=== PATIENT | female | born 1980 | race Caucasian/White ===

== ENCOUNTER 2025-06-27 20:45 | Emergency (ER) | payer OTHER, SELFPAY ==
[2025-06-27 20:48] VITALS: BP 168/94
[2025-06-27 21:09] LABS: Hematocrit 36.9 % (37.0-47.0); Hemoglobin 10.8 g/dL (12.0-16.0); Mean Corp Hgb Conc. 29.3 g/dL (33.0-37.0); Mean Corpuscular Volume 77.5 fL (81.0-99.0); Nucleated Red Blood Cells % 0 %; Platelet Count 210 10^3/uL (130-400); Red Cell Dist. Width 18.3 % (11.5-14.5)
[2025-06-27 21:19] LABS: ALT (SGPT) 19 U/L (0-35); AST (SGOT) 19 U/L (14-36); Albumin 3.9 g/dl (3.5-5.0); Alkaline Phosphatase 94 U/L (38-126); Blood Urea Nitrogen 10 mg/dl (7-17); Calcium 8.8 mg/dl (8.4-10.2); Carbon Dioxide 28 mmol/L (22-30); Chloride 102 mmol/L (98-107); Glucose 226 mg/dl (70-99); Potassium 4.1 mmol/L (3.5-5.1); Sodium 135 mmol/L (135-145); Total Protein 7.2 g/dl (6.3-8.2); eGFR > 60.00
[2025-06-27 23:30] VITALS: BMI 54.6
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
[2025-06-28] MEDS: TETRACAINE 0.5% OPHTHALMIC SOLUTION 1 DROP OPHTH (00:59)
[2025-06-28 01:46] VITALS: BP 147/62
== END 2025-06-28 01:30 | disposition home or self-care (01) ==
LOC: EMR 20:45
PROVIDERS: Emergency Medicine; EMERGENCY PHYSICIAN Emergency Medicine; FAMILY PHYSICIAN Family Medicine
DX: S05.02XA Injury of conjunctiva and corneal abrasion without foreign body, left eye, initial encounter (principal); H10.32 Unspecified acute conjunctivitis, left eye; X58.XXXA Exposure to other specified factors, initial encounter; F17.200 Nicotine dependence, unspecified, uncomplicated; Z86.16 Personal history of COVID-19; Z88.0 Allergy status to penicillin; Z90.49 Acquired absence of other specified parts of digestive tract
CPT/HCPCS: 99283; 80053; 85025

== ENCOUNTER 2025-09-15 21:44 | Emergency (ER) | payer OTHER, SELFPAY ==
[2025-09-15 21:55] VITALS: BP 184/90
[2025-09-15 23:29] VITALS: BMI 54.3
[2025-09-15 23:35] VITALS: BP 142/47
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
[2025-09-16 01:31] VITALS: BP 142/78
== END 2025-09-16 01:33 | disposition home or self-care (01) ==
LOC: EMR 21:44
PROVIDERS: EMERGENCY PHYSICIAN Student in an Organized Health Care Education/Training Program; FAMILY PHYSICIAN Family Medicine
DX: N63.20 Unspecified lump in the left breast, unspecified quadrant (principal); F17.200 Nicotine dependence, unspecified, uncomplicated; Z90.49 Acquired absence of other specified parts of digestive tract
CPT/HCPCS: 99282

== ENCOUNTER 2025-09-24 02:36 | Inpatient (IN) | payer OTHER, SELFPAY ==
[2025-09-23 22:50] VITALS: BP 204/123
[2025-09-23 23:17] LABS: Hematocrit 36.4 % (37.0-47.0); Hemoglobin 10.8 g/dL (12.0-16.0); Mean Corp Hgb Conc. 29.7 g/dL (33.0-37.0); Mean Corpuscular Volume 80.2 fL (81.0-99.0); Nucleated Red Blood Cells % 0 %; Platelet Count 220 10^3/uL (130-400); Red Cell Dist. Width 16.7 % (11.5-14.5)
[2025-09-23 23:32] LABS: ALT (SGPT) 29 U/L (0-35); AST (SGOT) 22 U/L (14-36); Albumin 3.9 g/dl (3.5-5.0); Alkaline Phosphatase 108 U/L (38-126); Blood Urea Nitrogen 11 mg/dl (7-17); Calcium 8.9 mg/dl (8.4-10.2); Carbon Dioxide 31 mmol/L (22-30); Chloride 99 mmol/L (98-107); Glucose 267 mg/dl (70-99); Potassium 4.0 mmol/L (3.5-5.1); Sodium 136 mmol/L (135-145); Total Protein 7.3 g/dl (6.3-8.2); eGFR > 60.00
[2025-09-24] VITALS (11 sets, daily range): BP systolic 73–157; BP diastolic 41–84; BMI 54.0; BMI 53.4
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
[2025-09-24] MEDS: TORADOL 15 MG IV (01:08)
[2025-09-24] MEDS: NSS 1000 IV (01:08)
[2025-09-24] MEDS: VANCOCIN 540 MG IV (02:11)
--- NOTE | 2025-09-24 02:22 | HPS.HSE ---
Family Physician
-
Family Physician: Ady Manning
Chief Complaint
-
L Breast Pain / Swelling / Redness
History of Present Illness
Patient is a 44y F with PMH significant for morbid obesity who presents to ED complaining of L breast pain, swelling and redness for the past 2 weeks. Patient denies any preceding injury, trauma, etc. She was seen here in the ED On 09/16 and
POCUS at that time showed a small fluid collection. Patient was already on a course of doxycycline (for sinus symptoms) at that time and this was continued. Patient followed up with Breast Surgery as an outpatient and clindamycin and cephalexin
were added to her regimen. Unfortunately her symptoms have persisted / progressed. She notes increased area of involvement with increased pain. She notes subjective fevers / chills.
Patient returned to the ED this evening for further evaluation.
Patient is noted to be hyperglycemic this evening. She states that she has had similar findings in the past associated with ED visits, etc - though she does not have a formal diagnosis of DM.
Medical History
Past Medical History
Past Medical History: Reports Other
Additional Past Medical History:
Morbid Obesity
Past Surgical History: Reports Other
Additional Past Surgical History:
T&A
Left Hand Surgery
Cholecystectomy
Social History
Tobacco: Non-smoker
Alcohol: None
Drug: Other (History of methamphetamine / cocaine use.)
Family History
Family History: Not pertinent
Allergies / Home Medications
Allergies reflects when Allergies were last updated in [facility].
Home Medications with original date entered in [facility]
Allergy/Medication List:
Allergies
Allergy/AdvReac Type Severity Reaction Status Date / Time
Penicillins Allergy Mild Hives Verified 09/23/25 22:49
oxycodone HCl (From Percocet) Allergy Rash Verified 09/23/25 22:49
shellfish derived Allergy Hives Verified 09/23/25 22:49
sulfamethoxazole (From Allergy Hives Verified 09/23/25 22:49
Bactrim)
trimethoprim (From Bactrim) Allergy Hives Verified 09/23/25 22:49
sensodyne Allergy Tongue Uncoded 09/23/25 22:49
Swelling
Home Medications
Keflex 1 tab PO BID 06/30/21
clindamycin HCl 300 mg capsule (Cleocin HCl) 300 mg PO TID 7 days #21 caps 06/28/25
Review of Systems
-
History Source: Patient
A 12 point ROS was completed and negative except as noted: Yes
Constitutional: Reports Fever, Fatigue and Chills
EENT: Denies Sore Throat
Respiratory: Denies Cough or Trouble Breathing
Cardiac: Denies Chest Pain or Palpitations
Abdomen/GI: Denies Abdominal Pain, Nausea, Vomiting or Diarrhea
: Denies Dysuria or Frequency
Skin: Reports Other (L breast pain, swelling, redness x 2 weeks.)
Neurological: Denies Dizzy or Headache
Psych: Denies Depression or Anxiety
Physical Exam
Vital Signs
Vital Signs
Temp Pulse Resp BP Pulse Ox
98.0 F 83 20 122/60 99
09/24/25 01:18 09/24/25 01:31 09/24/25 01:31 09/24/25 01:31 09/24/25 01:31
Physical Exam
General: Other (Morbidly obese 44y F in mild distress due to L breast pain.)
HEENT: Other (Absent dentition / dental implant posts in place. Thick neck.)
Respiratory: Clear; No Wheezes, Rales or Rhonchi
Cardiac: S1/S2 and Regular Rhythm; No Murmur
Breast: Other (L breast with erythema, increased warmth and induration. Area of focal fluctuance / tenderness superior to the areola. Clear drainage from areola.)
GI: Non Tender, Non Distended and Normal Bowel Sounds
Musculoskeletal: No Clubbing and No Cyanosis
Neuro: AO x 3
Laboratory Results
-
09/23/25 23:12
09/23/25 23:12
Laboratory Results
Lactic Acid Cancelled 09/24/25 05:00
Total Bilirubin 0.5 mg/dl (0.2-1.3) 09/23/25 23:12
AST 22 U/L (14-36) 09/23/25 23:12
ALT 29 U/L (0-35) 09/23/25 23:12
Alkaline Phosphatase 108 U/L (38-126) 09/23/25 23:12
Impression/Plan
-
A/P: Patient is a 44y F with PMH significant for morbid obesity who presents to ED complaining of 2 weeks of L breast pain, swelling and redness despite multiple OP abx.
Left Breast Abscess / Cellulitis
- Admit for further evaluation and treatment.
- Failed OP treatment with doxycycline, clindamycin and cephalexin.
- US done at bedside on 09/16 showed small collection.
- Formal US in the ED this evening shows 5 x 5 cm collection.
- Continue IV vancomycin for now.
- IR consulted for aspiration / culture in AM.
- Breast Surgery consulted for additional recommendations / further intervention if necessary.
- Follow-up culture data and adjust abx coverage as appropriate.
- Supportive care including pain control, etc.
Hyperglycemia
- Suspect undiagnosed DM-II given risk factors, prior hyperglycemia, etc.
- Follow glucose and cover with SSI as needed.
- Check A1C.
- Will likely benefit from initiation of DM-II regimen prior to discharge.
Morbid Obesity due to excess calories
- Affects all aspects of care.
- Encourage healthy diet and increased exercise with goal of weight loss.
DVT Prophylaxis: Lovenox
Code Status: Full
[2025-09-24] MEDS: LR 1000 IV ×2 (04:15→13:53)
--- NOTE | 2025-09-24 04:30 | PTCARENOTE ---
Pt is a 44y F with PMH Smoker, morbid obesity who presents to ED with a dx of Left breast abcess at 04:15. Pt AOx3, bed in a low position, call light in reach.
[2025-09-24 05:58] LABS: Hematocrit 34.1 % (37.0-47.0); Hemoglobin 9.9 g/dL (12.0-16.0); Mean Corp Hgb Conc. 29.0 g/dL (33.0-37.0); Mean Corpuscular Volume 81.2 fL (81.0-99.0); Platelet Count 215 10^3/uL (130-400); Red Cell Dist. Width 16.7 % (11.5-14.5)
[2025-09-24 06:17] LABS: Blood Urea Nitrogen 11 mg/dl (7-17); Calcium 8.5 mg/dl (8.4-10.2); Carbon Dioxide 29 mmol/L (22-30); Chloride 101 mmol/L (98-107); Estimated Creatinine Clearance > 125 ml/min; Glucose 209 mg/dl (70-99); Potassium 4.2 mmol/L (3.5-5.1); Sodium 135 mmol/L (135-145); eGFR > 60.00
[2025-09-24] MEDS: NOVOLOG FLEXPEN-LOW RESISTANCE SC (06:30)
--- NOTE | 2025-09-24 06:35 | PHA.VAN.IN ---
Assessment
- Assessment
Renal Function: Appears similar to baseline
AUC Dosing Plan
- Dosing Variables
Dosing Weight (kg): 141
Dosing CrCl (ml/min): 125
Vd coefficient (L/kg): 0.5
- Empiric Dosing
Initial / Loading Dose: 2000mg - 09/24 02:11
Maintenance Regimen: Vanc 1000mg Q8H starting at 1400
Estimated AUC (mcg*h/mL): 415
Estimated Peak (mcg*h/mL): 24.5
Estimated Trough (mcg/ml): 11.5
Estimated Half Life (H): 6.4
- Monitoring
No levels ordered at this time: consider levels in next few days - patient may be slow to accumulate
Pharmacokinetics Vancomycin I
- -
Patient Age: 44
Patient Sex: Female
Vancomycin Day #: 1
Indication: Skin And Soft Tissue
Requesting Provider: Dr. Shannon
Pertinent Antimicrobial Allergies:
penicillins - hives
Height / Weight:
Height 5 ft 4 in
Actual Weight 140.931 kg
Pertinent Past Medical History: BMI ~53
- Vital Signs / Lab Results
Temp Pulse Resp BP Pulse Ox
98.7 F 89 20 132/84 98
09/24/25 04:17 09/24/25 04:17 09/24/25 04:17 09/24/25 04:17 09/24/25 05:00
Lab Results - Hematology
09/23/25 09/24/25
23:12 05:37
WBC 13.1 H 12.1 H
Lab Results - Chemistry
09/23/25 09/24/25
23:12 05:37
BUN 11 11
Creatinine 0.6 0.6
Estimated Creat Clear > 125
Albumin 3.9
09/24/25 09/24/25
01:10 05:00
Lactic Acid 1.1 Cancelled
[2025-09-24] MEDS: DILAUDID 0.5 MG IV ×3 (06:45→16:17)
[2025-09-24 09:14] LABS: Glycohemoglobin (HgbA1c) 10.2 % (4.0-5.9)
--- NOTE | 2025-09-24 11:03 | CON.GS ---
Consultation
-
Date/Time Consultation Requested: 09/24/25 0100H
Date/Time Consultation Performed: 09/24/25 1104H
Requesting Provider: Jesse
Performing Provider: Rina
Reason for Consultation: Breast abscess
Medical History
-
Chief Complaint: Breast pain and swelling
History of Present Illness:
The patient is a44 Y/O female known to me from Clinic where she presented after being seen in the ED 4 days prior for left breast pain, swelling and pain. No fluctuance or identifiable collection at that time. Antibiotics broadened and patient
informed that she could be forming a collection. Her mother called yesterday and we instructed her to present to the ED for management.
Past Medical History
Past Medical History: Reviewed & Noncontributory
Past Surgical History: Cholecystectomy and Tonsilectomy
Social History
Tobacco: Non-Smoker
Alcohol: None
Drug: None
Family History
Family History: Reviewed & Not Pertinent
Allergies / Home Medications
Allergy/AdvReac Type Severity Reaction Status Date / Time
Penicillins Allergy Mild Hives Verified 09/23/25 22:49
oxycodone HCl (From Percocet) Allergy Rash Verified 09/23/25 22:49
shellfish derived Allergy Hives Verified 09/23/25 22:49
sulfamethoxazole (From Allergy Hives Verified 09/23/25 22:49
Bactrim)
trimethoprim (From Bactrim) Allergy Hives Verified 09/23/25 22:49
sensodyne Allergy Tongue Uncoded 09/23/25 22:49
Swelling
�Medication �Instructions �Recorded �Confirmed �Type
Keflex 1 tab PO BID 06/30/21 09/24/25 History
clindamycin HCl 300 mg capsule 300 mg PO TID 7 days #21 caps 06/28/25 09/24/25 Rx
(Cleocin HCl)
Review of Systems
-
History Source: Patient
All other systems: Negative unless noted
Constitutional: Fever
Skin: Other (breast skin with edema and erythema)
A 10 point review of systems was completed, and was negative except as per HPI.
Physical Exam
Vital Signs
Temp Pulse Resp BP Pulse Ox
98.6 F 89 16 149/63 91
09/24/25 08:10 09/24/25 08:10 09/24/25 08:10 09/24/25 08:10 09/24/25 08:10
09/23/25 09/24/25 09/25/25
06:59 06:59 06:59
Actual Weight 140.931 kg
Body Mass Index (BMI) 53.4
Lab Results
09/24/25 05:37
09/24/25 05:37
WBC 12.1 10^3/uL (4.8-10.8) H 09/24/25 05:37
Hgb 9.9 g/dL (12.0-16.0) L 09/24/25 05:37
Hct 34.1 % (37.0-47.0) L 09/24/25 05:37
Plt Count 215 10^3/uL (130-400) 09/24/25 05:37
Abs Immat Gran (auto) 0.1 10^3/uL (0-0.05) H 09/23/25 23:12
Neutrophils % 70.1 % (42.2-75.2) 09/23/25 23:12
Physical Exam
General: Well Developed and Other (obese)
HEENT: Anicteric
Respiratory: Clear and Non Labored Respirations
Breast: Other (erythema left breast with decreased edema compared to 3 days ago)
GI: Non Tender
Musculoskeletal: No Clubbing and Other (missing digits left hand)
Neuro: Awake and Alert
Psych: Calm
Data Reviewed
-
Radiology: Image Personally Visualized and interpreted, Report Reviewed by me and Discussed with Physician
Ultrasound: Image Personally Visualized and interpreted, Report Reviewed by me and Discussed with Physician
Labs: Labs Reviewed by me
Assessment / Plan
-
44 Y/O female with abscess of the left breast. She will undergo IR drainage and drain placement. Await culture results. Pt will need glycemic management or healing may be significantly delayed. Additionally, she is anemic and this can be worked up
as an outpatient. Await culture results and I will follow her as an outpatient after discharge for drain management. Once cleared, breast imaging (mammogram) will be ordered.
--- NOTE | 2025-09-24 12:59 | W.PN.UPDATE ---
Update Note
Progress Note Update
- US guided L breast abscess. 6F drain placed.
- 10 mL purulent fluid aspirated, sent for gs/cx
- Pt tolerated well.
[2025-09-24] MEDS: VANCOCIN 200 IV ×2 (13:54→22:20)
[2025-09-24] MEDS: NOVOLOG FLEXPEN-LOW RESISTANCE 1 UNITS SC (14:13)
[2025-09-24 14:19] LABS: Glucose - Point of Care 161 mg/dl (70-99)
--- NOTE | 2025-09-24 16:11 | CM ---
CM met with pt bedside
Pt resides in a 2nd floor apartment with a roommate, no elevator, 3STE, full flight to second floor
Her brother/Marcial and CHANDA/Christian reside in the apartment below her
Pt is independent with her ADLs, denies use of DMEs
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
PCP- Ady Manning
Rx- [facility] [address]
Discharge Disposition- anticipate home no needs
[2025-09-24] MEDS: LOVENOX 40 MG SC (16:17)
[2025-09-24 16:38] LABS: Glucose - Point of Care 257 mg/dl (70-99)
[2025-09-24] MEDS: NOVOLOG FLEXPEN-LOW RESISTANCE 3 UNITS SC (17:14)
[2025-09-24] MEDS: TORADOL 10 MG IV (20:27)
[2025-09-24 21:51] LABS: Glucose - Point of Care 293 mg/dl (70-99)
[2025-09-25] MEDS: LR IV ×2 (01:00→12:01)
[2025-09-25] MEDS: DILAUDID 0.5 MG IV ×4 (04:05→17:37)
[2025-09-25] MEDS: VANCOCIN 200 IV ×3 (05:47→21:16)
--- NOTE | 2025-09-25 06:25 | RESPNOTE ---
Nocturnal Oximetry done overnight with no issues. Report is printed and scanned.
--- NOTE | 2025-09-25 07:38 | PHA.VAN.FU ---
Vancomycin Assessment / Plan
- Assessment
Renal Function: No New Labs Today
In the past 24 hrs, patient has been: Afebrile
Wound cx with S. aureus - PBP2a negative per microlab
- Dosing Plan
Continue: Vanc 1000mg Q8H
- Monitoring Plan
No level(s) ordered at this time: consider in next few days
Monitoring Comments: patient may be slow to accumulate given weight > 100kg
- Follow Up
Pharmacy will continue to follow.
Vancomycin Follow UP
- -
Patient Age: 44
Patient Sex: Female
Vancomycin Day #: 2
Indication: Skin And Soft Tissue
Requesting Provider: Dr. Shannon
Pertinent Antimicrobial Allergies:
penicillins - hives
Height / Weight:
Height 5 ft 4 in
Actual Weight 140.931 kg
Pertinent Past Medical History: BMI ~53
- Vital Signs / Lab Results
Temp Pulse Resp BP Pulse Ox
98.7 F 89 17 147/70 91
09/24/25 23:06 09/24/25 23:06 09/24/25 23:06 09/24/25 23:06 09/24/25 23:06
Lab Results - Hematology
09/23/25 09/24/25
23:12 05:37
WBC 13.1 H 12.1 H
Lab Results - Chemistry
09/23/25 09/24/25
23:12 05:37
BUN 11 11
Creatinine 0.6 0.6
Estimated Creat Clear > 125
Albumin 3.9
09/24/25 09/24/25
01:10 05:00
Lactic Acid 1.1 Cancelled
Microbiology Results
09/24/25 01:10 Blood Culture - Preliminary
Blood/Venous No Growth in 24 hours- Final report to follow
09/24/25 01:10 Blood Culture - Preliminary
Blood/Venous No Growth in 24 hours- Final report to follow
[2025-09-25 07:48] LABS: Glucose - Point of Care 271 mg/dl (70-99)
[2025-09-25 07:54] VITALS: BP 148/69
[2025-09-25] MEDS: NOVOLOG FLEXPEN-LOW RESISTANCE 3 UNITS SC ×2 (08:28→12:30)
[2025-09-25] MEDS: FLUSH (NSS) 2 FLUSH IV ×3 (08:35→17:39)
--- NOTE | 2025-09-25 10:01 | W.PN.HOSP.TC ---
Today's Communication/Plan
-
Continue with IV vancomycin
Start on Lantus and nutritional insulin
Nocturnal oxygen support
Assessment / Plan
Assessment / Plan
A/P: Patient is a 44y F with PMH significant for morbid obesity who presents to ED complaining of 2 weeks of L breast pain, swelling and redness despite multiple OP abx.
Left Breast Abscess / Cellulitis
- Failed OP treatment with doxycycline, clindamycin and cephalexin.
- Ultrasound imaging shows a collection concerning for abscess
- Status post IR ultrasound-guided abscess drainage. Drainage catheter in the cavity. Await surgical input
- Continue IV vancomycin for now. Staphylococcus aureus in cultures so far-sensitivities pending
- Supportive care including pain control, etc.
New onset of diabetes mellitus
Hemoglobin A1c 10.2.
Discussed about role of insulin once the hemoglobin A1c is more than 9. Agreeable for insulin. Once adequate control she can transition to oral hypoglycemic agents, GLP-1 agonist.
Start on Lantus at night and nutritional insulin. Consult diabetic nurse educator
Nocturnal hypoxemia. Patient has clinical features of obstructive sleep apnea.
Nocturnal pulse oximetry report reviewed.
Will provide home oxygen during sleep. Patient advised to get a formal sleep study.
Morbid Obesity due to excess calories
- Affects all aspects of care.
- Encourage healthy diet and increased exercise with goal of weight loss.
DVT Prophylaxis: Lovenox
Code Status: Full
Total time spent on today's encounter was 52 minutes which included time spent in counseling the patient/family regarding diagnosis and treatment plan as listed above, goals of care, and symptom management. Case was discussed with nursing staff,
specialists, and care coordinators/case management. All labs and imaging personally reviewed by me. Remainder the time spent in detailed review of previous records, lab data, imaging, and other medical provider documentation.
Anticipated Discharge: 24 - 48 hours
Subjective/Interval History
-
Date of Service: September 25, 2025
Pain from the left breast abscess area better. Denies any fever or chills.
Was not aware that she is diabetic.
She has snoring issues, inadequate sleep feeling, naps in the day.
Objective Data
-
Vital Signs:
Vital Signs
Temp Pulse Resp BP Pulse Ox
98.4 F 76 20 148/69 93
09/25/25 07:54 09/25/25 07:54 09/25/25 07:54 09/25/25 07:54 09/25/25 07:54
I&O
09/24/25 09/25/25 09/26/25
06:59 06:59 06:59
Intake Total 1490 / 1490
Output Total
Balance 1465 / 1465
Physical Exam
-
General: Comfortable
Respiratory: Clear to Auscultation and Non Labored Respirations; Negative Accessory Resp Muscle Use
Cardiac: Regular Rhythm and S1/S2; Negative Tachycardic
GI: Soft and Other (Obese)
Neuro: AO x 3
Data Reviewed
-
Labs: Labs Reviewed by me
[2025-09-25 11:35] LABS: Glucose - Point of Care 532 mg/dl (70-99)
[2025-09-25 12:12] LABS: Glucose 289 mg/dl (70-99)
[2025-09-25] MEDS: NOVOLOG FLEXPEN 5 UNITS SC ×2 (12:30→17:26)
--- NOTE | 2025-09-25 14:30 | W.PN.UPDATE ---
Update Note
Progress Note Update
Spoke with Microbiology, Staph aureus from the breast infection was put up for sensitivies and will be resulted tomorrow. Have patient see me as outpatient for drain removal.
[2025-09-25 15:08] VITALS: BP 147/76
[2025-09-25 16:18] LABS: Glucose - Point of Care 227 mg/dl (70-99)
[2025-09-25] MEDS: NOVOLOG FLEXPEN-LOW RESISTANCE 2 UNITS SC (17:26)
[2025-09-25] MEDS: LOVENOX 40 MG SC (17:27)
[2025-09-25] MEDS: TORADOL 10 MG IV (21:15)
[2025-09-25 21:45] LABS: Glucose - Point of Care 291 mg/dl (70-99)
[2025-09-25] MEDS: LANTUS 0.15 UNITS SC (22:18)
[2025-09-25 23:06] VITALS: BP 144/66
[2025-09-26] MEDS: DILAUDID 0.5 MG IV ×2 (01:23→10:18)
[2025-09-26] MEDS: VANCOCIN 200 IV (05:44)
[2025-09-26 07:00] VITALS: BP 160/92
[2025-09-26] MEDS: TORADOL 10 MG IV (07:39)
[2025-09-26 07:46] LABS: Glucose - Point of Care 210 mg/dl (70-99)
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
[2025-09-26] MEDS: NOVOLOG FLEXPEN-LOW RESISTANCE 2 UNITS SC ×2 (08:19→12:28)
[2025-09-26] MEDS: NOVOLOG FLEXPEN 5 UNITS SC (08:20)
[2025-09-26] MEDS: GLUCOPHAGE 500 MG PO ×2 (09:02→17:42)
[2025-09-26] MEDS: NOVOLOG FLEXPEN 3 UNITS SC (09:03)
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
--- NOTE | 2025-09-26 09:40 | CM ---
Patient seen at bedside 2 south. Patient stated that she lives with roommate. Patient plan is home with VN and she would like [facility] when discharged. Patient pending ID consult. CM will continue to follow for discharge planning needs.
Plan; home with VN; pending [facility] and watch for IV antibiotic needs.
[2025-09-26 10:04] LABS: Hematocrit 37.4 % (37.0-47.0); Hemoglobin 10.7 g/dL (12.0-16.0); Mean Corp Hgb Conc. 28.6 g/dL (33.0-37.0); Mean Corpuscular Volume 84.6 fL (81.0-99.0); Nucleated Red Blood Cells % 0 %; Platelet Count 202 10^3/uL (130-400); Red Cell Dist. Width 16.5 % (11.5-14.5)
[2025-09-26] MEDS: ANCEF 10 IV ×2 (10:07→17:44)
[2025-09-26 11:32] LABS: Glucose - Point of Care 202 mg/dl (70-99)
--- NOTE | 2025-09-26 11:35 | W.PN.HOSP.TC ---
Today's Communication/Plan
-
Monitor vital signs see plan
Follow cultures
Continue with Ancef
Continue with drain per surgery
Continue with insulin
Pain control
Assessment / Plan
Assessment / Plan
A/P: Patient is a 44y F with PMH significant for morbid obesity who presents to ED complaining of 2 weeks of L breast pain, swelling and redness despite multiple OP abx.
General: Comfortable
Respiratory: Clear to Auscultation and Non Labored Respirations; Negative Accessory Resp Muscle Use
Cardiac: Regular Rhythm and S1/S2; Negative Tachycardic
GI: Soft and Other (Obese)
Neuro: AO x 3
Left Breast Abscess / Cellulitis
- Failed OP treatment with doxycycline, clindamycin and cephalexin.
- Ultrasound imaging shows a collection concerning for abscess
- Status post IR ultrasound-guided abscess drainage. Drainage catheter in the cavity. Dr. Flynn following. Patient will follow-up with her outpatient
- Cultures so far with Staph aureus, ID now consulted. Switched antibiotic to Ancef
- Supportive care including pain control, etc.
Does have significant pain, currently on IV Dilaudid. Start as needed Vicodin which patient tolerated in the past
New onset of diabetes mellitus
Hemoglobin A1c 10.2.
Discussed about role of insulin once the hemoglobin A1c is more than 9. Agreeable for insulin. Once adequate control she can transition to oral hypoglycemic agents, GLP-1 agonist.
Start on Lantus at night and nutritional insulin. Consult diabetic nurse educator
Insulin teaching
Nocturnal hypoxemia. Patient has clinical features of obstructive sleep apnea.
Nocturnal pulse oximetry report reviewed.
Will provide home oxygen during sleep. Patient advised to get a formal sleep study.
Morbid Obesity due to excess calories
- Affects all aspects of care.
- Encourage healthy diet and increased exercise with goal of weight loss.
DVT Prophylaxis: Lovenox
Code Status: Full
Total time spent on today's encounter was 51 minutes which included time spent in counseling the patient/family regarding diagnosis and treatment plan as listed above, goals of care, and symptom management. Case was discussed with nursing staff,
specialists, and care coordinators/case management. All labs and imaging personally reviewed by me. Remainder the time spent in detailed review of previous records, lab data, imaging, and other medical provider documentation.
Anticipated Discharge: > 48 hours
Subjective/Interval History
-
Date of Service: September 26, 2025
Does have some pain
Objective Data
-
Labs:
Laboratory Results
09/26/25 09/26/25
09:04 10:30
WBC 9.7
Hgb 10.7 L
Hct 37.4
Plt Count 202
Sodium Cancelled Pending
Potassium Cancelled Pending
Chloride Cancelled Pending
Carbon Dioxide Cancelled Pending
BUN Cancelled Pending
Creatinine Cancelled Pending
Glucose Cancelled Pending
Calcium Cancelled Pending
Vital Signs:
Vital Signs
Temp Pulse Resp BP Pulse Ox
98.5 F 81 18 160/92 95
09/26/25 07:00 09/26/25 07:00 09/26/25 07:00 09/26/25 07:00 09/26/25 07:00
I&O
09/25/25 09/26/25 09/27/25
06:59 06:59 06:59
Intake Total 1490 / 1490 1925 / 1925
Output Total
Balance 1465 / 1465 1895 / 1895
[2025-09-26 12:00] LABS: Blood Urea Nitrogen 10 mg/dl (7-17); Calcium 8.5 mg/dl (8.4-10.2); Carbon Dioxide 30 mmol/L (22-30); Chloride 103 mmol/L (98-107); Estimated Creatinine Clearance > 125 ml/min; Glucose 141 mg/dl (70-99); Potassium 4.5 mmol/L (3.5-5.1); Sodium 138 mmol/L (135-145); eGFR > 60.00
[2025-09-26] MEDS: NOVOLOG FLEXPEN SC ×2 (12:28→16:59)
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
[2025-09-26 14:11] LABS: Anisocytosis 1+; Hypochromasia 2+; Normal RBC Morphology No; Ovalocytes Slight; Polychromasia Slight
[2025-09-26 15:00] VITALS: BP 143/60
[2025-09-26 16:59] LABS: Glucose - Point of Care 150 mg/dl (70-99)
[2025-09-26] MEDS: NOVOLOG FLEXPEN-LOW RESISTANCE SC (17:00)
[2025-09-26] MEDS: NORCO 5/325 1 TABLET PO ×2 (17:03→22:08)
[2025-09-26] MEDS: NOVOLOG FLEXPEN 8 UNITS SC (17:42)
[2025-09-26] MEDS: LOVENOX 40 MG SC (17:42)
[2025-09-26] MEDS: COLACE PO (20:24)
[2025-09-26 21:37] LABS: Glucose - Point of Care 155 mg/dl (70-99)
[2025-09-26] MEDS: LANTUS 0.2 UNITS SC (22:14)
[2025-09-26 23:31] VITALS: BP 130/54
[2025-09-27] MEDS: ANCEF 10 IV ×3 (02:23→17:26)
[2025-09-27] MEDS: NORCO 5/325 1 TABLET PO ×2 (02:32→22:45)
[2025-09-27 07:00] VITALS: BP 125/40
[2025-09-27 07:16] LABS: Hematocrit 35.0 % (37.0-47.0); Hemoglobin 10.3 g/dL (12.0-16.0); Mean Corp Hgb Conc. 29.4 g/dL (33.0-37.0); Mean Corpuscular Volume 84.1 fL (81.0-99.0); Nucleated Red Blood Cells % 0 %; Platelet Count 186 10^3/uL (130-400); Red Cell Dist. Width 16.6 % (11.5-14.5)
[2025-09-27 07:38] LABS: Glucose - Point of Care 154 mg/dl (70-99)
[2025-09-27 07:57] LABS: Blood Urea Nitrogen 10 mg/dl (7-17); Calcium 8.6 mg/dl (8.4-10.2); Carbon Dioxide 32 mmol/L (22-30); Chloride 101 mmol/L (98-107); Estimated Creatinine Clearance > 125 ml/min; Glucose 145 mg/dl (70-99); Potassium 4.2 mmol/L (3.5-5.1); Sodium 135 mmol/L (135-145); eGFR > 60.00
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
[2025-09-27] MEDS: TYLENOL 650 MG PO ×4 (08:41→20:47)
[2025-09-27] MEDS: GLUCOPHAGE 500 MG PO ×2 (08:41→16:44)
[2025-09-27] MEDS: NOVOLOG FLEXPEN 8 UNITS SC ×3 (08:42→16:50)
[2025-09-27] MEDS: COLACE 100 MG PO (08:42)
[2025-09-27] MEDS: NOVOLOG FLEXPEN-LOW RESISTANCE 1 UNITS SC ×3 (08:42→16:49)
--- NOTE | 2025-09-27 09:15 | W.PN.ID1 ---
Date of Service
Date of Service: September 27, 2025
Today's Communication
- Continue cefazolin 2g IV q8
-At time of dc, transition to high dose, weight based cephalexin 1000mg po qid through 10/07/25
Assessment / Plan
# MSSA L breast abscess s/p drain placement
# Leukocytosis - resolved
# New dx of DM
# Tobacco use disorder
# Class III obesity
- Continue cefazolin 2g IV q8
-At time of dc, transition to high dose, weight based cephalexin 1000mg po qid through 10/07/25
- Recommend tight glucose control.
- smoking cessation
Chief Complaint
-: Other (breast abscess)
Subjective / Review of Systems
Tolerating cefazolin. L breast pain improving.
Vital Signs / Physical Exam
Vital Signs
Vital Signs
Temp Pulse Resp BP Pulse Ox
98.0 F 73 17 125/40 94
09/27/25 07:00 09/27/25 07:00 09/27/25 07:00 09/27/25 07:00 09/27/25 07:00
Physical Exam
Constitutional: No Acute Distress and Comfortable
Cardiovascular: Regular Rate and S1/S2
Pulmonary: Clear
Gastrointestinal: Soft, Non Tender, Non Distended and Normal Bowel Sounds
Extremities: Negative Edema
Wound: Other (Left breast CARINA drain semi-cloudy serous fluid, surrounding erythema/edema decreasing)
Objective Data
Lab Data
Lab Results
09/27/25 06:40
09/27/25 06:40
Estimated Creat Clear > 125 ml/min 09/27/25 06:40
Lactic Acid Cancelled 09/24/25 05:00
Total Bilirubin 0.5 mg/dl (0.2-1.3) 09/23/25 23:12
AST 22 U/L (14-36) 09/23/25 23:12
ALT 29 U/L (0-35) 09/23/25 23:12
Alkaline Phosphatase 108 U/L (38-126) 09/23/25 23:12
Most recent labs reviewed.
Micro Results:
09/24/25 01:10 Blood Culture - Preliminary
Blood/Venous No Growth in 72 hours- Final report to follow
09/24/25 01:10 Blood Culture - Preliminary
Blood/Venous No Growth in 72 hours- Final report to follow
09/24/25 13:11 Wound Culture - Final
Breast - Left S aureus-Methicillin Sensitive
Gram Stain - Final
09/24/25 Left breast US: Retroareolar heterogeneous hypoechoic complex cystic measuring 4.9 x 1.8 x 5.4 cm. Concerning for abscess given the clinical history.
--- NOTE | 2025-09-27 11:04 | W.PN.HOSP.TC ---
Today's Communication/Plan
-
Monitor vital signs and see plan
Nocturnal O2
Continue with insulin teaching
Continue with antibiotic
Assessment / Plan
Assessment / Plan
A/P: Patient is a 44y F with PMH significant for morbid obesity who presents to ED complaining of 2 weeks of L breast pain, swelling and redness despite multiple OP abx.
General: Comfortable
Respiratory: Clear to Auscultation and Non Labored Respirations; Negative Accessory Resp Muscle Use
Cardiac: Regular Rhythm and S1/S2; Negative Tachycardic
GI: Soft and Other (Obese)
Neuro: AO x 3
Left Breast Abscess / Cellulitis
- Failed OP treatment with doxycycline, clindamycin and cephalexin.
- Ultrasound imaging shows a collection concerning for abscess
- Status post IR ultrasound-guided abscess drainage. Drainage catheter in the cavity. Dr. Flynn following. Patient will follow-up with her outpatient
- Cultures so far with Staph aureus, ID now consulted. Switched antibiotic to Ancef
- Supportive care including pain control, etc.
Does have significant pain at times, currently on IV Dilaudid. Start as needed Vicodin which patient tolerated in the past
New onset of diabetes mellitus
Hemoglobin A1c 10.2.
Discussed about role of insulin once the hemoglobin A1c is more than 9. Agreeable for insulin. Once adequate control she can transition to oral hypoglycemic agents, GLP-1 agonist.
Start on Lantus at night and nutritional insulin. Consult diabetic nurse educator
Insulin teaching; will benefit from CGM.
Nocturnal hypoxemia. Patient has clinical features of obstructive sleep apnea.
Nocturnal pulse oximetry report reviewed.
Will provide home oxygen during sleep. Patient advised to get a formal sleep study.
Morbid Obesity due to excess calories
- Affects all aspects of care.
- Encourage healthy diet and increased exercise with goal of weight loss.
DVT Prophylaxis: Lovenox
Code Status: Full
Anticipated Discharge: Within 24 hours
Subjective/Interval History
-
Date of Service: September 27, 2025
denies nausea
Objective Data
-
Labs:
Laboratory Results
09/27/25
06:40
WBC 10.3
Hgb 10.3 L
Hct 35.0 L
Plt Count 186
Sodium 135
Potassium 4.2
Chloride 101
Carbon Dioxide 32 H
BUN 10
Creatinine 0.6
Glucose 145 H
Calcium 8.6
Vital Signs:
Vital Signs
Temp Pulse Resp BP Pulse Ox
98.0 F 73 17 125/40 94
09/27/25 07:00 09/27/25 07:00 09/27/25 07:00 09/27/25 07:00 09/27/25 10:08
I&O
09/26/25 09/27/25 09/28/25
06:59 06:59 06:59
Intake Total 1924 485 / 485 5 / 5
Output Total
Balance 1894 475 / 475 5 / 5
[2025-09-27 11:45] LABS: Glucose - Point of Care 174 mg/dl (70-99)
--- NOTE | 2025-09-27 13:20 | CM ---
Addendum entered by Alvin Poon 09/27/25 14:47:
Per [facility] liaison, pt will have [facility] that serves pt's area.
Original Note:
CM following re: discharge planning.
Reviewed pt's chart, met with pt.
Per MD pt will need nocturnal Oxygen at discharge and pt will need VN services. Per chart review, pt is known to [facility]. A referral to [facility] made.
CM placed an order for nocturnal Oxygen with [facility].
D/C plan: home with [facility], nocturnal Oxygen and family support.
CM will follow with discharge plan updates as hospitalization progresses
[2025-09-27 14:59] VITALS: BP 163/77
--- NOTE | 2025-09-27 15:50 | VNURNOTE ---
Home Health Liaison met with patient and mom at bedside to discuss VN nurse/therapy, visits, schedule and homebound status. Patient is agreeable and understands that visits at home will be 2-3 x per week to assess and teach medical management.
Patient aware that [facility] can see her for a next day visit. She is agreeable to [facility]. She is aware they will contact them for start of care after DC from .
[facility] set up by JENNIFER w/ [facility].
Watching if pt goes home w/ CARINA or not.
[facility] referral completed in [facility].
[2025-09-27 16:51] LABS: Glucose - Point of Care 177 mg/dl (70-99)
[2025-09-27] MEDS: LOVENOX 40 MG SC (17:26)
[2025-09-27] MEDS: COLACE PO (19:06)
[2025-09-27 21:43] LABS: Glucose - Point of Care 159 mg/dl (70-99)
[2025-09-27] MEDS: LANTUS 0.2 UNITS SC (22:01)
[2025-09-27 23:04] VITALS: BP 158/79
[2025-09-28] MEDS: ANCEF 10 IV ×2 (00:59→10:50)
--- NOTE | 2025-09-28 03:30 | DOWNTIME ---
There was a [employer] Client Audit Reviewer Downtime on 09/28/2025 from 0100 to 09/28/2025 at 0255. Downtime documentation of patient's care, including medication administrations, has been reconciled in the electronic record per guidelines. Refer to the
patient's paper chart under the miscellaneous tab to see printed paper medication records and downtime forms.
[2025-09-28] MEDS: NORCO 5/325 1 TABLET PO ×3 (03:41→13:49)
[2025-09-28 06:46] LABS: Blood Urea Nitrogen 11 mg/dl (7-17); Calcium 9.1 mg/dl (8.4-10.2); Carbon Dioxide 32 mmol/L (22-30); Chloride 102 mmol/L (98-107); Estimated Creatinine Clearance > 125 ml/min; Glucose 148 mg/dl (70-99); Potassium 4.4 mmol/L (3.5-5.1); Sodium 136 mmol/L (135-145); eGFR > 60.00
[2025-09-28 06:55] LABS: Hematocrit 37.4 % (37.0-47.0); Hemoglobin 11.1 g/dL (12.0-16.0); Mean Corp Hgb Conc. 29.7 g/dL (33.0-37.0); Mean Corpuscular Volume 79.6 fL (81.0-99.0); Nucleated Red Blood Cells % 0 %; Platelet Count 227 10^3/uL (130-400); Red Cell Dist. Width 17.2 % (11.5-14.5)
[2025-09-28 07:00] VITALS: BP 171/75
[2025-09-28 07:33] LABS: Glucose - Point of Care 161 mg/dl (70-99)
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
[2025-09-28] MEDS: NOVOLOG FLEXPEN 8 UNITS SC ×2 (08:58→12:22)
[2025-09-28] MEDS: NOVOLOG FLEXPEN-LOW RESISTANCE 1 UNITS SC (08:58)
[2025-09-28] MEDS: COLACE PO ×2 (08:59→09:05)
[2025-09-28] MEDS: GLUCOPHAGE 500 MG PO (08:59)
[2025-09-28] MEDS: ZESTRIL 5 MG PO (09:03)
--- NOTE | 2025-09-28 09:30 | W.PN.ID1 ---
Date of Service
Date of Service: September 28, 2025
Today's Communication
- Continue cefazolin 2g IV q8
-At time of dc, transition to high dose, weight based cephalexin 1000mg po qid through 10/07/25
Assessment / Plan
# MSSA L breast abscess s/p drain placement
# New dx of DM
# Tobacco use disorder
# Class III obesity
- Continue cefazolin 2g IV q8
-At time of dc, transition to high dose, weight based cephalexin 1000mg po qid through 10/07/25
- tight glucose control.
- smoking cessation
Chief Complaint
-: Other (breast abscess)
Subjective / Review of Systems
Left breast pain continues to improve.
Vital Signs / Physical Exam
Vital Signs
Vital Signs
Temp Pulse Resp BP Pulse Ox
98.2 F 76 20 171/75 93
09/28/25 07:00 09/28/25 07:00 09/28/25 07:00 09/28/25 07:00 09/28/25 07:00
Physical Exam
Constitutional: No Acute Distress and Comfortable
Cardiovascular: Regular Rate and S1/S2
Pulmonary: Clear
Gastrointestinal: Soft, Non Tender, Non Distended and Normal Bowel Sounds
Extremities: Negative Edema
Wound: Other (Left breast CARINA drain semi-cloudy serous fluid, surrounding erythema/edema decreasing)
Neurological: AO x 3
Objective Data
Lab Data
Lab Results
09/28/25 05:46
09/28/25 05:46
Estimated Creat Clear > 125 ml/min 09/28/25 05:46
Lactic Acid Cancelled 09/24/25 05:00
Total Bilirubin 0.5 mg/dl (0.2-1.3) 09/23/25 23:12
AST 22 U/L (14-36) 09/23/25 23:12
ALT 29 U/L (0-35) 09/23/25 23:12
Alkaline Phosphatase 108 U/L (38-126) 09/23/25 23:12
Most recent labs reviewed.
Micro Results:
09/24/25 01:10 Blood Culture - Preliminary
Blood/Venous No Growth in 4 days- Final report to follow
09/24/25 01:10 Blood Culture - Preliminary
Blood/Venous No Growth in 4 days- Final report to follow
09/24/25 13:11 Wound Culture - Final
Breast - Left S aureus-Methicillin Sensitive
Gram Stain - Final
09/24/25 Left breast US: Retroareolar heterogeneous hypoechoic complex cystic measuring 4.9 x 1.8 x 5.4 cm. Concerning for abscess given the clinical history.
[2025-09-28 11:55] LABS: Glucose - Point of Care 123 mg/dl (70-99)
--- NOTE | 2025-09-28 12:02 | W.PN.HOSP.TC ---
Addendum entered and electronically signed by Magdi Mercedes MD 09/28/25 14:29:
Discussed with diabetes FINANCE LECTURER, continuous glucose monitoring has been set up. Will discharge patient home
Time of discharge 38 minutes
Original Note:
Today's Communication/Plan
-
Monitor vital signs see plan
Discussed with diabetes FINANCE LECTURER, they will coordinate with continuous glucose monitoring
Continue with insulin
Start lisinopril
Pain control
Hopeful discharge today if continuous glucose monitoring setup
Assessment / Plan
Assessment / Plan
A/P: Patient is a 44y F with PMH significant for morbid obesity who presents to ED complaining of 2 weeks of L breast pain, swelling and redness despite multiple OP abx.
General: Comfortable
Respiratory: Clear to Auscultation and Non Labored Respirations; Negative Accessory Resp Muscle Use
Cardiac: Regular Rhythm and S1/S2; Negative Tachycardic
GI: Soft and Other (Obese)
Neuro: AO x 3
Left Breast Abscess / Cellulitis
- Failed OP treatment with doxycycline, clindamycin and cephalexin.
- Ultrasound imaging shows a collection concerning for abscess
- Status post IR ultrasound-guided abscess drainage. Drainage catheter in the cavity. Dr. Flynn following. Patient will follow-up with her outpatient
- Cultures so far with Staph aureus, ID now consulted. Switched antibiotic to Ancef. cefalexin on dc per ID
- Supportive care including pain control, etc.
Does have significant pain at times, currently on IV Dilaudid. Start as needed Vicodin which patient tolerated in the past
New onset of diabetes mellitus
Hemoglobin A1c 10.2.
Discussed about role of insulin once the hemoglobin A1c is more than 9. Agreeable for insulin. Once adequate control she can transition to oral hypoglycemic agents, GLP-1 agonist.
Start on Lantus at night and nutritional insulin. Consult diabetic nurse educator
Insulin teaching; will benefit from CGM. Dsicussed with diabetes FINANCE LECTURER and they will coordinate
Hypertension
New diagnosis
Started lisinopril
Monitor
Nocturnal hypoxemia. Patient has clinical features of obstructive sleep apnea.
Nocturnal pulse oximetry report reviewed.
Will provide home oxygen during sleep. Patient advised to get a formal sleep study.
Discussed with casework supervisor, nocturnal O2 set up
Morbid Obesity due to excess calories
- Affects all aspects of care.
- Encourage healthy diet and increased exercise with goal of weight loss.
DVT Prophylaxis: Lovenox
Code Status: Full
Anticipated Discharge: Today
Subjective/Interval History
-
Date of Service: September 28, 2025
denies nausea
Objective Data
-
Labs:
Laboratory Results
09/28/25
05:46
WBC 11.3 H
Hgb 11.1 L
Hct 37.4
Plt Count 227 D
Sodium 136
Potassium 4.4
Chloride 102
Carbon Dioxide 32 H
BUN 11
Creatinine 0.6
Glucose 148 H
Calcium 9.1
Vital Signs:
Vital Signs
Temp Pulse Resp BP Pulse Ox
98.2 F 76 20 171/75 93
09/28/25 07:00 09/28/25 07:00 09/28/25 07:00 09/28/25 07:00 09/28/25 07:00
I&O
09/27/25 09/28/25 09/29/25
06:59 06:59 06:59
Intake Total 485 / 485 1005 / 1005
Output Total
Balance 475 / 475 995 / 995
[2025-09-28] MEDS: NOVOLOG FLEXPEN-LOW RESISTANCE SC (12:13)
--- NOTE | 2025-09-28 13:49 | PN.DE ---
Diabetes Education
- -
09/28/2025: Diabetes Education
Met with Ms. Browne and her Mom at bedside today for training and placement of wearable CGM sensor.
Pt was provided with a new Babs Plus 3 Sensor, assisted pt and Mom through process of creating an account in the [employer].
Reviewed procedure of sensor application and identified appropriate areas of sensor placement.
Pt identified RUE back of the arm as preferred site for insertion. Prepped skin with alcohol and sensor was placed.
Reviewed use of mobile device to display glucose readings, alerts and pre-set Low or High Glucose levels for hypoglycemia or hyperglycemia awareness.
Sensor was linked to her smart phone [employer] and 60 minute warm-up phase was initiated.
Discussed trend arrows that show whether glucose values are rising or falling and how fast, explained predictive alerts and how they alert the patient before reaching pre-set Low or High Glucose Alert levels.
Discussed alerts for hypoglycemia, instructed pt to always check a finger stick for confirmation of low blood sugar and discussed treatment for Hypoglycemia. Instructed pt to check her blood glucose via sensor before meals, then inject meal time
insulin in stomach and eat in 10-20 minutes and Long acting insulin in outer thigh, rotating sites. Aware to store insulin pens that are not in use in the refrigerator. Discussed importance of assessing food/medication effect on her Blood sugar via
sensor.
Pt was provided information and DSME class material and was encouraged to register for the Nov 2025 class.
Will need RX for CGM sensor, NovoLog and Lantus as well as pen needles at discharge.
All questions and concerns were addressed and answered to their satisfaction.
Diabetes Nurse Educator provided a list of local Endo at patient's request
[2025-09-28 14:22] VITALS: BP 145/71
--- NOTE | 2025-09-28 14:39 | W.DCSUMMARY ---
Discharge Summary
Discharge Data
Date of Admission: 09/24/25
Date of Discharge: 09/28/25
-
Pending Results: No
Hospital Course
44-year-old female with history of morbid obesity came to the hospital with left breast pain, swelling and redness suspected to have infection. Patient did had left breast abscess which was drained by IR and the drain remained on discharge.
Patient was instructed to follow-up with Dr. Flynn and IR outpatient while she was in the hospital initially she was on IV antibiotics and was seen by ID throughout hospitalization. Initially she was on IV antibiotics and later transition to oral
prior to discharge. Her culture grew MSSA. On this hospitalization she was also diagnosed with new onset diabetes mellitus with A1c of 10.2. She was seen by diabetes nurse practitioner and educator. She was started on insulin along with
metformin. She also had hypertension for which she was started on lisinopril. On 06/10 instructed to check her blood pressure twice daily and to contact her primary care provider for further blood pressure medication titration. While she was in the
hospital she also had nocturnal hypoxemia and had nocturnal pulse ox study. She was significantly hypoxic. Per case management help she was approved for nocturnal O2. On discharge instructed to follow-up closely with PCP and pulmonary for sleep
study. Once her symptoms continue to improve, she was then discharged home with instructions to follow-up with all her physicians outpatient.
Discharge Plan
-
Patient Disposition: Home with Home Care
Discharge Diagnosis/Procedures: MSSA L breast abscess s/p drain placement
Diabetes mellitus
Hypertension
Nocturnal hypoxia suspect secondary to sleep apnea
Condition: Good
Diet: As tolerated and Diabetic, Carb Controlled
Activity: As tolerated
Driving Restrictions: As prior to admission
Bathing Restrictions: None
Others Tests: Sleep study outpatient with PCP or pulmonary
Activity Restrictions/Additional Instructions:
Flush drain with 5mL daily
Follow-up with Dr. Flynn and IR for drainage
Check your blood pressure twice daily and write those numbers down. Follow-up with your primary care physician for further blood pressure medication titration
Referrals:
Queta Flynn MD [Active, Surgical] - in less than 1 week
Michael French MD [Active, Radiology]
Ady Manning DO [Family Provider, Family Practice] - in less than 1 week
Antonette Javier DO [Active, Pulmonary Medicine]
Prescriptions:
New
insulin aspart U-100 [Novolog FlexPen U-100 Insulin] 100 unit/mL (3 mL) Insulin Pen
8 unit SC AC Qty: 5 1RF
insulin glargine [Lantus Solostar U-100 Insulin] 100 unit/mL (3 mL) Insulin Pen
20 unit SC HS Qty: 5 1RF
metformin 500 mg Tablet
500 mg PO BID@0800,1700 Qty: 60 1RF
(DME) FreeStyle Babs 3 Plus Sensor Device
Qty: 2 1RF
Rx Instructions:
As Directed
hydrocodone-acetaminophen 5-325 mg Tablet
1 tab PO Q4HPRN PRN (Reason: moderate to severe pain) Qty: 15 0RF
docusate sodium 100 mg Capsule
100 mg PO BID Qty: 0 0RF
lisinopril 5 mg Tablet
5 mg PO DAILY Qty: 30 0RF
cephalexin 500 mg capsule
1,000 mg PO QID 10 Days Qty: 80 0RF
Probiotic 10 billion cell capsule
10,000 mmu cells PO DAILY Qty: 14 0RF
sodium chloride 0.9 % (flush) [Normal Saline Flush] Syringe
5 ml IV DAILY Qty: 5 0RF
(DME) pen needle, diabetic [Dixie Pen Needle] 32 gauge x ' Needle
Qty: 200 1RF
Rx Instructions:
Use one pen needle for each injection 4 times per day
E11.65
Discontinued
Keflex
1 tab PO BID
clindamycin HCl [Cleocin HCl] 300 mg capsule
300 mg PO TID 7 Days Qty: 21 0RF
Discharge Orders:
Discharge Patient (As Directed); Ordered 09/28/25
Ordered By: Magdi Mercedes
Discharge Date and Time
Discharge Date/Time: 09/28/25 17:35
Print Language: KINYARWANDA
--- NOTE | 2025-09-28 15:04 | CM ---
CM following re: discharge planning.
Reviewed pt's chart, met with pt and pt's mother at bedside.
CM placed an order for nocturnal Oxygen with [facility]. Pt stated she received phone call from [facility] and she will call them back when she is home to receive Oxygen concentrator.
Pt stated she received a phone call from [facility] and they will start services tomorrow.
[facility] care fax: [phone]
D/C plan: home with [facility], nocturnal Oxygen and family support. Mother to transport.
--- NOTE | 2025-09-28 17:33 | PTCARENOTE ---
At discharge, began discharge teaching regarding CARINA drain. Drain was hanging by sutures. Unable to drain properly. The Bulb still was able to be compressed and stayed. Pt instructed to call surgeon's office in the morning for follow up care.
== END 2025-09-28 17:35 | disposition home health service (06) | DRG 600 ==
LOC: 2 SOUTH 02:36
PROVIDERS: Internal Medicine; Nurse Practitioner; Radiology Diagnostic Radiology; ADMITTING PHYSICIAN Hospitalist; ATTENDING PHYSICIAN Internal Medicine; CONSULT PHYSICIAN Internal Medicine Infectious Disease; CONSULT PHYSICIAN Surgery; EMERGENCY PHYSICIAN Emergency Medicine; FAMILY PHYSICIAN Family Medicine
PROC: 0H9U30Z Drainage of Left Breast with Drainage Device, Percutaneous Approach (ICD-10-PCS; 2025-09-24)
DX: N61.1 Abscess of the breast and nipple (principal); Z68.43 Body mass index [BMI] 50.0-59.9, adult; B95.61 Methicillin susceptible Staphylococcus aureus infection as the cause of diseases classified elsewhere; R09.02 Hypoxemia; I10 Essential (primary) hypertension; E66.813 Obesity, class 3; Z88.0 Allergy status to penicillin; Z91.013 Allergy to seafood; Z88.2 Allergy status to sulfonamides; Z88.1 Allergy status to other antibiotic agents; E11.65 Type 2 diabetes mellitus with hyperglycemia; F17.200 Nicotine dependence, unspecified, uncomplicated
CPT/HCPCS: 10030; 76642; 80048; 80053; 82947; 82962; 83036; 83605; 84443; 85025; 85027; 87040; 87070; 87147; 87186; 87205; 94762; 96361; 96374; 96375; 99152; 99153; 99284; C1729; C1769